=== PATIENT | female | born 1970 | race Two or more races ===

== ENCOUNTER 2021-11-29 12:17 | Emergency (ER) | payer OTHER, SELFPAY ==
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
[2021-11-29 12:24] VITALS: BP 148/92; PULSE 99; O2SAT 98
[2021-11-29 12:40] VITALS: BP 152/105; PULSE 104; RESP 16; TEMP 36.5; O2SAT 98
[2021-11-29 13:09] VITALS: BMI 34.4
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
[2021-11-29] MEDS: Acetaminophen 325 MG TABLET 975 MG PO (14:33)
[2021-11-29] MEDS: Ibuprofen 600 MG TABLET PO (14:33)
[2021-11-29] MEDS: Diphth,Pertus(ACell),Tet Adult 0.5 ML SYRINGE IM (14:33)
== END 2021-11-29 16:56 | disposition home or self-care (01) ==
PROVIDERS: Emergency Provider Emergency Medicine Emergency Medical Services
DX: S50.811A Abrasion of right forearm, initial encounter (principal); V43.52XA Car driver injured in collision with other type car in traffic accident, initial encounter; W22.11XA Striking against or struck by driver side automobile airbag, initial encounter; Y93.89 Activity, other specified; Y92.414 Local residential or business street as the place of occurrence of the external cause; Y99.9 Unspecified external cause status
CPT/HCPCS: 73090; 90471; 90715; 99283; 99284